=== PATIENT | female | born 1965 | race Caucasian/White ===

== ENCOUNTER 2018-08-11 12:10 | Day surgery (SDC) | payer OTHER, SELFPAY ==
[2018-08-11] VITALS (8 sets, daily range): BP systolic 122–152; BP diastolic 74–91; PULSE 73–95; RESP 11–18; TEMP 36.1–37.1; O2SAT 94–97; BMI 30.4
[2018-08-11] MEDS: SODIUM CHLORIDE 0.9% 1,000 ML 200 ML IV (12:50)
--- NOTE | 2018-08-11 13:57 | PM.HP.1 ---
History of Present Illness Date Patient Seen: 08/11/18 Time Patient Seen: 13:57 Chief complaint: 92408 SCREENING COLONOSCOPY Narrative: Asymptomatic patient with no prior colonoscopy here for screening colonoscopy Patient History Social History household members: spouse Family & Social History Social History: household members spouse Meds Home Medications Medication Instructions Recorded Confirmed Type No Known Home Medications 08/11/18 08/11/18 History Allergies Allergy/AdvReac Type Severity Reaction Status Date / Time No Known Drug Allergies Allergy Verified 08/11/18 12:51 Review of Systems Review of Systems All systems reviewed & are unremarkable except as noted in HPI and below Exam Vital Signs (past 8 hours): - 08/11/18 12:52 Temperature 97.2 F L Pulse Rate 95 H Respiratory Rate 18 Blood Pressure 152/91 H Pulse Oximetry 96 Oxygen Delivery Method Room Air Narrative Exam Narrative: Patient is alert and oriented with no complaints Lungs are clear with no rales or wheezes Heart regular rhythm no murmur Abdomen soft no organomegaly or tenderness Rectal will be done at time of colonoscopy Assessment & Plan Assessment & Plan narrative: Asymptomatic patient here for screening colonoscopy has no further questions
[2018-08-11] MEDS: fentaNYL 250 MCG/5 ML INJ IV (14:00)
[2018-08-11] MEDS: MIDAZOLAM 5 MG/5 ML VIAL IV (14:01)
--- NOTE | 2018-08-11 14:43 | PM.OP.ENDO ---
Operative Date/Time/Diagnoses Date of procedure: 08/11/18 Time of procedure: 14:43 Pre-op diagnosis: Screening colonoscopy Post-op diagnosis: same Procedure & Clinicians Study performed: Total colonoscopy to the cecum Same procedure as scheduled: Yes Indications: Screening Surgeon: Bobby Chaney Procedure Notes SCOAP/Timeout: Was done Procedure in detail: Patient was properly identified during surgical pause given a total of 5 mg of Versed 200 micro g of fentanyl throughout the procedure which was very well tolerated the flexible fiberoptic colonoscope was inserted transanally to the cecum. Patient has a normal colon. No polyps no tumors no diverticulosis the procedure was well tolerated Scope withdrawal time: 15 Sedation minutes: 30 Specimen(s): none sent Complications: none Impression: Normal colon Recommendations: Colonscopy in 10 years Disposition: PACU
--- NOTE | 2018-08-11 14:47 | SUR.PHASEI ---
1440 To PACU, arouses easily to voice/very drowsy. VSS, returns to sleep immediately. Skin warm and dry, resp even and regular.
--- NOTE | 2018-08-11 14:49 | SUR.PHASEI ---
Dr. Chaney spoke with patient. Sips of water given. Asked if had been called, then returned to sleep.
--- NOTE | 2018-08-11 15:02 | SUR.PHASEI ---
1459 Drowsy, oriented, Stable. resp unlabored, skin warm and dry. Tolerating water well. preparing to transfer.
--- NOTE | 2018-08-11 15:14 | SUR.PHASEII ---
pt arrived to phase II via stretcher. Pt sitting up, alert and talking to RN. pt abd soft and denies any pain/discomfort or nausea. bed in lowest position and call light given to pt. pt awaiting arrival of ride at this time. pt appears comfortable at this time.
== END 2018-08-11 15:30 | disposition home or self-care (01) ==
PROVIDERS: PCP Family Medicine; Visit Provider Surgery
PROC: 0DJD8ZZ Inspection of Lower Intestinal Tract, Via Natural or Artificial Opening Endoscopic (ICD-10-PCS; CPT 45378; principal; 2018-08-11 14:15)
DX: Z12.11 Encounter for screening for malignant neoplasm of colon (principal)
CPT/HCPCS: G0121; 99152; 99153; J2250; J3010

== ENCOUNTER 2021-04-09 13:23 | Outpatient (CLI) | payer OTHER, SELFPAY | END 2021-04-10 17:00 | disposition home or self-care (01) | LOC: PHYS 13:24 | PROVIDERS: PCP Family Medicine; Referring Provider Nurse Practitioner Family; Visit Provider Nurse Practitioner Family | DX: G56.00 Carpal tunnel syndrome, unspecified upper limb (principal) | CPT/HCPCS: 95886; 95911 ==